=== PATIENT | female | born 1980 | race Caucasian/White ===

== ENCOUNTER 2017-07-03 05:15 | Day surgery (SDC) | payer OTHER ==
[2017-07-01 11:14] LABS: HEMATOCRIT 36.9 % (36.0-47.0); HEMOGLOBIN 12.7 g/dL (12.0-15.5); MEAN CORPUSCULAR HEMOGLOBIN 32.8 pg (27.0-33.4); MEAN CORPUSCULAR HGB CONC 34.4 g/dL (32.0-36.0); MEAN CORPUSCULAR VOLUME 96 fl (80-97); PLATELET COUNT 263 10^3/uL (150-450); RED BLOOD COUNT 3.86 10^6/uL (3.72-5.28); RED CELL DISTRIBUTION WIDTH 12.4 % (11.5-14.0); WHITE BLOOD COUNT 7.1 10^3/uL (4.0-10.5)
[2017-07-01 11:19] LABS: APPEARANCE,URINE CLEAR; BILIRUBIN,URINE NEGATIVE (NEGATIVE); COLOR,URINE YELLOW; GLUCOSE, URINE NEGATIVE (NEGATIVE); KETONES,URINE NEGATIVE (NEGATIVE); LEUKOCYTE ESTERASE,URINE NEGATIVE (NEGATIVE); NITRITE,URINE NEGATIVE (NEGATIVE); PROTEIN,URINE NEGATIVE (NEGATIVE); URINE SPECIFIC GRAVITY 1.006; UROBILINOGEN,URINE NEGATIVE mg/dL (<2.0)
[2017-07-01 11:55] LABS: ANION GAP 9 (5-19); BLOOD UREA NITROGEN 8 mg/dL (7-20); CALCIUM 9.6 mg/dL (8.4-10.2); CARBON DIOXIDE 28 mmol/L (22-30); CHLORIDE 103 mmol/L (98-107); GLUCOSE 93 mg/dL (75-110); POTASSIUM 4.5 mmol/L (3.6-5.0)
[~2017-07-03 05:15] MED LIST: CEFAZOLIN 1 GM/D5W RTU 1 GM/50 ML RTUPB IV PRN; LACTATED RINGERS 1000 ML IV PRN; LIDOCAINE 0.5% INJ-PF (5 MG/ML) 50 ML SDV SUBCUT PRN
[2017-07-03] MEDS ORDERED: FENTANYL CITRATE INJ/PF 100 MCG/2 ML AMPUL ONE (06:49)
[2017-07-03] MEDS ORDERED: MIDAZOLAM 2 MG/2 ML INJ ONE (06:50)
[2017-07-03] MEDS ORDERED: ONDANSETRON HCL INJ/PF 4 MG/2 ML SDV ONE (06:50)
[2017-07-03] MEDS ORDERED: PROPOFOL INJ 200 MG/20 ML VIAL IV ONE (06:50)
[2017-07-03] MEDS ORDERED: LIDOCAINE 2% INJ-PF (20 MG/ML) 10 ML AMPUL ONE (06:59)
[2017-07-03] MEDS ORDERED: MORPHINE SULFATE 10 MG/ML INJ IV PRN (07:51)
[2017-07-03] MEDS ORDERED: FENTANYL CITRATE INJ/PF 100 MCG/2 ML AMPUL IV PRN ×3 (07:51)
[2017-07-03] MEDS ORDERED: DIPHENHYDRAMINE HCL 50 MG/ML VIAL IV PRN (07:51)
[2017-07-03] MEDS ORDERED: PROMETHAZINE HCL INJ 25 MG/1 ML VIAL IV PRN (07:51)
[2017-07-03] MEDS ORDERED: OXYCODONE-ACETAMINOPHEN 5-325 MG TABLET ONE (08:41)
[2017-07-03] MEDS ORDERED: RINGERS SOLUTION,LACTATED 1,000 ML IV PRN (08:46)
[2017-07-03] MEDS ORDERED: OXYCODONE-ACETAMINOPHEN 5-325 MG TABLET PO PRN (09:00)
[2017-07-03] MEDS ORDERED: PROMETHAZINE HCL INJ 25 MG/1 ML VIAL IM PRN (09:00)
[2017-07-03] MEDS ORDERED: MORPHINE INJ 4 MG DOSE (EDIT ROUTE) INJ PRN (09:00)
[2017-07-03] MEDS ORDERED: DEXAMETHASONE SOD PHOSPHATE INJ 4 MG/1 ML VIAL ONE (09:40)
[2017-07-03] MEDS ORDERED: SUCCINYLCHOLINE CHLORIDE INJ 200 MG/10 ML VIAL ONE (09:40)
[2017-07-03] MEDS ORDERED: GLYCOPYRROLATE INJ 0.4 MG/2 ML VIAL ONE (09:40)
[2017-07-03 10:08] VITALS: BP 115/65
[2017-07-03] MEDS ORDERED: IBUPROFEN 800 MG TABLET PO SCH (14:00)
--- NOTE | 2017-07-31 09:53 | OPERATIVE REPORT E ---
Operative Report NAME: GRISELDA WHITAKER : 1980 AGE: 36Y DATE OF SURGERY: 07/03/2017 ROOM: PREOPERATIVE DIAGNOSIS: Menorrhagia. POSTOPERATIVE DIAGNOSIS: Menorrhagia. PROCEDURE: Hysteroscopy and Novasure ablation. SURGEON: STANFORD FINNEY M.D. COMPLICATIONS: None. ANESTHESIA: LMAC. FINDINGS: Normal endometrial cavity. DESCRIPTION OF PROCEDURE: The patient underwent the same-day procedure. Hysteroscopy after surgical dilation of the cervix was performed. EUA had been performed. Bladder was left undrained. Novasure device was placed after measurements had been taken. It was deployed and fired. Rehysteroscopy demonstrated good uterine integrity post procedure. The patient had a benign outpatient biopsy. DICTATING PHYSICIAN: STANFORD FINNEY M.D. [id number] PHY#: [id number] ID: [id number] JOB#: [id number] ACCT: [id number] cc:STANFORD FINNEY M.D. >
== END 2017-07-03 09:40 | disposition home or self-care (01) ==
LOC: OROUT 05:15
PROVIDERS: ATTEND Specialist
PROC: 0U5B8ZZ Destruction of Endometrium, Via Natural or Artificial Opening Endoscopic (ICD-10-PCS; principal; 2017-07-03 07:15)
DX: N92.0 Excessive and frequent menstruation with regular cycle (principal); Z79.899 Other long term (current) drug therapy; Z88.2 Allergy status to sulfonamides
CPT/HCPCS: 86900; 86901; 36415; 86850; 85027; 81025; 80048; 81001; 58563; J2250; J0690; J1100; J3010; J0330; J2405; J2704; J3490; 952